=== PATIENT | female | born 1970 | race Caucasian/White ===

== ENCOUNTER 2017-08-31 05:30 | Inpatient (IN) | payer OTHER ==
[~2017-08-31] VITALS: Ht 157.5 cm; Wt 76.2 kg
[2017-08-31] VITALS (10 sets, daily range): BP systolic 115–127; BP diastolic 60–79
[2017-08-31] MEDS ORDERED: PROPOFOL 200 MG/20 ML VIAL IV ONE (07:25)
[2017-08-31] MEDS ORDERED: SEVOFLURANE 250 ML BTL INH ONE (07:25)
[2017-08-31] MEDS ORDERED: ONDANSETRON 4 MG/2 ML VIAL ONE (07:25)
[2017-08-31] MEDS ORDERED: KETOROLAC 60 MG/2 ML VIAL IM ONE (07:25)
[2017-08-31] MEDS ORDERED: DEXAMETHASONE 4 MG/ML VIAL ONE (07:25)
[2017-08-31] MEDS ORDERED: ceFAZolin 1,000 MG VIAL ONE (07:30)
[2017-08-31] MEDS ORDERED: MIDAZOLAM 2 MG/2 ML VIAL ONE (07:34)
[2017-08-31] MEDS ORDERED: fentaNYL 0.05 MG/ML VIAL ONE (07:34)
[2017-08-31] MEDS ORDERED: MORPHINE SULFATE 4 MG/ML SYR ONE ×3 (07:34→09:32)
[2017-08-31] MEDS ORDERED: METOCLOPRAMIDE 10 MG/2 ML INJ VIAL IVP PRN (08:15)
[2017-08-31] MEDS ORDERED: MIDAZOLAM 2 MG/2 ML VIAL IV ONE (08:15)
[2017-08-31] MEDS ORDERED: MORPHINE SULFATE 2 MG/ML SYR IVP PRN (08:15)
[2017-08-31] MEDS ORDERED: MORPHINE SULFATE 4 MG/ML SYR IVP PRN (08:15)
[2017-08-31] MEDS: MORPHINE SULFATE 4 MG/ML SYR IVP PRN ×2 (09:14→09:30)
--- NOTE | 2017-08-31 09:20 | NUR ---
PATIENT HAS BEEN SCREENED AND CATEGORIZED LOW NUTRITION RISK. PATIENT WILL BE SEEN WITHIN 7 DAYS OF ADMISSION. 09/06/[address]
--- NOTE | 2017-08-31 10:10 | NUR ---
RECEIVED BEDSIDE REPORT FROM OR NURSE. PATIENT IS AWAKE, ALERT AND ORIENTEDX4. NO SIGNS OF DISTRESS ON ROOM AIR. IV ON L AC 20G SALINE LOCK. IV IS CLEAN DRY AND INTACT. AT BEDSIDE. SHE COMPLAINS OF PAIN BUT WAS ALREADY GIVEN MORPHINE IN THE OR. HR IS 56 AND RR 15. EXPLAINED TO PATIENT THAT MORE PAIN MEDS CAN DEPRESS HER RESP SYSTEM SO WE WILL TRY ALTERNATIVES LIKE K PAD. K PAD ORDERED AND WILL PLACE ON PATIENT. SCANT BLEEDING ON PAD. NO ABN SIGNS. ALL ADMISSION QUESTIONS ANSWERED. BED IN LOW POSITION. CALL LIGHT WITHIN REACH. WILL CONTINUE TO MONITOR THE PATIENT. VITALS AT BEDSIDE. WILL CHECK IT [id number] FOR AN HOUR.
--- NOTE | 2017-08-31 12:29 | NUR ---
PATIENT WANTED TO TURN THE HEAT UP FOR THE K PAD. TURNED IT UP, NO OTHER COMPLAINTS AT THIS TIME. SCANT BLEEDING NOTED AT THIS TIME. VITALS ARE WITHIN NORMAL LIMITS. WILL CONTINUE TO MONITOR THE PATIENT.
--- NOTE | 2017-08-31 14:30 | NUR ---
PATIENT IS SLEEPING. NO SIGNS OF DISTRESS AT THIS TIME. WILL CONTINUE TO MONITOR THE PATIENT.
--- NOTE | 2017-08-31 15:46 | NUR ---
ASSISTED THE PATIENT TO THE RESTROOM. SHE ATTEMPTED TO URINATE BUT NO URINE. PATIENT BACK IN BED. TOLD HER NEXT TIME SHE WANTS TO GO TO CALL ME AGAIN USING THE CALL LIGHT. SHE VERBALIZED UNDERSTANDING. PATIENTS GAIT IS STEADY. Addendum: 08/31/17 at 1547 by Adeline Nelson RN SCANT BLEEDING NOTED.
--- NOTE | 2017-08-31 19:00 | NUR ---
GAVE BEDSIDE REPORT TO COMPUTATIONAL THEORY SCIENTIST NURSE. PATIENT IS IN STABLE CONDITION.
[2017-08-31] MEDS: MORPHINE SULFATE 2 MG/ML SYR IVP PRN (19:41)
--- NOTE | 2017-08-31 19:41 | NUR ---
PT SAID THAT SHE WAS FEELING BETTER AND PAIN LEVEL WAS DOWN TO A 3 AT THIS TIME. SHE ALSO SAID THAT SHE WAS FEELING LESS NAUSEA THAN BEFORE. PT SAID THAT SHE HAD BEEN FEELING THE URGE TO VOID AND WAS ONLY ABLE TO VOID A SMALL AMOUNT, PT ABDOMEN FELT AND ABDOMEN WAS SOFT AND NON TENDER. WILL CONTINUE TO MONITOR PT FOR NUSEA, PAIN AND VOIDING PATTERN.
--- NOTE | 2017-08-31 19:41 | NUR ---
ADMINISTERED PAIN MEDS FOR MUSIC ORCHESTRATOR NURSE. PATIENT TOLERATED WELL. ENDORSED THE PAIN REASSESSMENT TO
--- NOTE | 2017-08-31 19:41 | NUR ---
RECEIVED REPORT FROM BELL RN DAY SHIFT NURSE. PT IS AOX4 LYING IN LOW BED WITH CALL CHEN IN REACH. PT COMPLAINS OF 8/10 PAIN IN LOWER ABDOMEN. PT IS CRYING AND FACIAL GRIMACING AT THIS TIME. SKIN INTACT AND DVT PUMPS ON LOWER EXTREMITIES. VSS AND PT WAS GIVEN PRN MORPHINE 2MG BY DAY SHIFT NURSE BEFORE ENDORSEMENT OF CHANGE OF SHIFT. PT SAID THAT SHE STILL FELT NAUSEA BUT NO VOMITING. DURING BEDSIDE REPORT STAFF NURSES EXPLAINED THAT IT MAY BE THE EFFECTS OF THE ANESTHESIA AND I WILL MONITOR HER DURING THE SHIFT. PT VERBALIZED UNDERSTANDING.
--- NOTE | 2017-08-31 21:00 | NUR ---
PT SAID THAT SHE HAS NO PAIN AND WAS NOT FEELING NAUSEA ANY LONGER. PT SAID THAT SHE HAD ANOTHER SMALL VOID BUT THAT IT WAS MORE URINE THAN BEFORE. PT SAID THAT MOVING AROUND WHEN SHE FEELS THE URGE TO VOID HAS HELPED HER TO VOID A LITTLE BIT MORE. PT REMINDED TO CALL FOR HELP TO TOILET IF SHE FEELS DIZZY OR WEAK AND TO TAKE HER TIME TRANSFERRING HERSELF FROM SITTING POSITION TO STANDING POSITION. PT VERBALIZED UNDERSTANDING.
--- NOTE | 2017-08-31 22:30 | NUR ---
PT SAID THAT SHE VOIDED A LITTLE MORE BUT WAS STILL HAVING TROUBLE EMPTYING BLADDER. DR. GROVE WAS PAGED FOR AN ORDER TO STRAIGHT CATHETERIZE PT. PT EDUCATED THAT SHE MAY NEED TO BE STRAIGHT CATHETERIZED IF SHE CANNOT EMPTY HER BLADDER. PT VERBALIZED UNDERSTANDING. AWAITING RETURN PHONE CALL FROM PRIMARY DOCTOR.
--- NOTE | 2017-08-31 23:00 | NUR ---
PT SAID THAT SHE HAS NO PAIN AND NAUSEA ANY LONGER BUT STILL FEELS THAT SHE HAS BEEN ABLE TO FULLY EMPTY BLADDER. PT BLADDER WAS SCANNED AND RESULTS WERE 334MLS OF URINE IN THE BLADDER. AWAITING RETURN PHONE CALL FROM PRIMARY, AND WILL CONTINUE TO MONITOR PT. STAFF NURSE DID EXPLAIN THAT HER RETENTION MAY BE THE AFTER EFFECTS OF THE ANESTHESIA. PT VERBALIZED UNDERSTANDING AND WILL CONTINUE TO MONITOR RESIDENT. PT CONTINUES TO HAVE SCANT BLEEDING FROM VAGINA DUE TO SURGERY.
[2017-09-01] VITALS: BP 142/76
--- NOTE | 2017-09-01 00:20 | NUR ---
DR GROVE WAS PAGED AGAIN AWAITING CALL BACK REGARDING ORDERS FOR A STRAIGHT CATHETER PRN.
--- NOTE | 2017-09-01 01:15 | NUR ---
DR CALLED BACK WITH PRN ORDERES FOR STRAIGHT CATHETER AND PRN MOTRIN Q4HRS AND NORCO PRN Q 4HRS REQUESTED BY PT. ATTEMPTED STRAIGHT CATHETER X 2 WITH NO OUTPUT. NO BLOODY DISCHARGE NOTED. PT LABIA PINK, PT TOLERATED PROCEDURE, HOWEVER NOO URINE OUTPUT NOTED. PT DID HAVE AN INCONTIENT EPISODE WITH A SMALL AMOUNT OF URINE APPROXIMATELY 150MLS. BLADDER SCAN WAS REDONE AND VOLUME 104. HAT PUT IN TOILET TO MEASURE PT OUTPUT ACCURATELY. PT GIVEN PRN MOTRIN FOR 5/10 PAIN. PT LINEN CHANGED AND MADE COMFORTABLE. WILL CONTINUE TO MONITOR PT FOR URINE OUTPUT.
[2017-09-01] MEDS ORDERED: ACETAMINOPHEN 325 MG TAB PO PRN (01:25)
[2017-09-01] MEDS: IBUPROFEN 800 MG TAB PO PRN ×3 (01:40→21:21)
[2017-09-01] MEDS: MORPHINE SULFATE 2 MG/ML SYR IVP PRN (04:03)
--- NOTE | 2017-09-01 06:45 | NUR ---
PT HAD X2 EPISODES OF STRESS INCONTINENCE
--- NOTE | 2017-09-01 06:50 | NUR ---
PT HAD SOAKED 3 BED PADS. SHE SAID SHE TRIED TO HOLD IT IN THE FIRST TIME AND THEN SHE SAID THAT SHE HAD BECOME INCONTINENT. PT ALSO C/O OF 6/10 PAIN IN LOWER ABDOMEN. PT SAID THAT SHE WAS CONCERNED BECAUSE SHE HAD NOT HAD BM IN 2 DAYS.
[2017-09-01] MEDS: HYDROcodone/APAP 5/325 MG 1 TAB TAB PO PRN (07:03)
--- NOTE | 2017-09-01 07:43 | NUR ---
DR GROVE AT BEDSIDE TO MICHAEL PT, AND CHANGE OF SHIFT REPORT GIVEN TO JEREMIAH AT BEDSIDE
--- NOTE | 2017-09-01 07:50 | NUR ---
RECEIVED REPORT FROM DATA WAREHOUSE ARCHITECT NURSE, OLE, ABOUT THE PT. PT IS AWAKE AND LYING ON THE BED WITH A PERIPHERAL LINE AT LEFT AC G. 22 SALINE LOCK, INTACT. SIDE RAILS ARE UP AND CALL LIGHT WITHIN REACH. ABDOMINAL BINDER PLACED. DR. GROVE IS ON THE BEDSIDE TALKING TO THE PT. NO SIGN OF DISTRESS NOTED. WILL MONITOR.
--- NOTE | 2017-09-01 07:50 | NUR ---
RECEIVED REPORT FROM PRINT COLOR MATCHER NURSE, OLE, ABOUT THE PT. PT IS AWAKE AND LYING ON THE BED WITH A PERIPHERAL LINE AT LEFT AC G. 22 SALINE LOCK, INTACT. SIDE RAILS ARE UP AND CALL LIGHT WITHIN REACH. ABDOMINAL BINDER PLACED. DR. GROVE IS ON THE BEDSIDE TALKING TO THE PT. NO SIGN OF DISTRESS NOTED. WILL MONITOR.
--- NOTE | 2017-09-01 07:55 | NUR ---
DR. GROVE MADE A VERBAL ORDER TO GIVE PT A STOOL SOFTENER, 100MG.
--- NOTE | 2017-09-01 08:15 | NUR ---
PT IS AWAKE AND LYING ON THE BED, VITAL SIGNS TAKEN AND IS STABLE, ABDOMINAL BINDER WAS PLACED AND NO SIGN OF DISTRESS NOTED. CALL LIGHT WITHIN REACH AND WILL CONTINUE TO MONITOR.
[2017-09-01] MEDS: DOCUSATE SODIUM 100 MG GELCAP PO PRN (09:10)
--- NOTE | 2017-09-01 11:39 | NUR ---
PT IS AWAKE AND LYING ON THE BED, PT VERBALIZED A PAIN RATE OF 6/10, PAIN MEDICATION GIVEN AND PT TOLERATED IT. NO OTHER SIGN OF DISCOMFORT NOTED. CALL LIGHT WITHIN REACH AND WILL CONTINUE TO MONITOR.
--- NOTE | 2017-09-01 13:00 | NUR ---
PT IS AWAKE AND UP AND STANDING, TRYING TO AMBULATE INSIDE THE ROOM. PT VERBALIZED A REDUCED PAIN OF 2/10. NO SIGN OF DISTRESS NOTED AND CALL LIGHT WITHIN REACH. WILL CONTINUE TO MONITOR.
--- NOTE | 2017-09-01 16:30 | NUR ---
PT IS AWAKE AND STANDING ON THE BEDSIDE, ASSISTED PT CLEAN UP AND HANDED A TOOTHBRUSH AND TOOTHPASTE. NO SIGN OF DISTRESS NOTED AND CALL LIGHT WITHIN REACH. WILL CONTINUE TO MONITOR.
--- NOTE | 2017-09-01 19:30 | NUR ---
ENDORSED PT TO VALUE STREAM LEADER NURSEOLE FOR CONTINUITY OF CARE. PT IS AWAKE AND STABLE AT THIS TIME.
--- NOTE | 2017-09-01 19:30 | NUR ---
REPORT RECIEVED FROM SALOME CASTELAN DAY SHIFT NURSE. PT AOX 4 IN LOW BED WITH SIDE RAILS UP X2 AND CALL CHEN IN REACH. PT SKIN INTACT, AND SHE HAS NO C/O VOICED AT THIS TIME. PT REFUSES TO WEAR DVT PUMPS, HOWEVER SHE IS AMBULATORY IN HER ROOM INDEPENDENTLY. SHE IS NOW WEARING AN ABD BINDER TO HELP SUPPORT ABDOMEN. PT IS CALM AND SAID THAT SHE WAS LOOKING FORWARD TO GOING HOME TOMMORROW AND THAT SHE IS FEELING BETTER. PT REPORT THAT SHE IS STILL HAVING INCONTIENT EPISODES WHEN SHE SITS ON TOILET, BUT IS ABLE TO VOID FREELY ON PADS ON BED. HAT LEFT IN TOILET TO MEASURE OUTPUT WHEN TRYING TO VOID ON TOILET. THERE IS ONLY A SCANT AMOUNT OF URINE IN HAT AT HIS TIME. PT DENIED ANY VAGINAL DISCHARGE, ABD PAIN AND N/V/D.
--- NOTE | 2017-09-01 20:00 | NUR ---
PT V/S FOLLOWS T 99.6 P 67 R 20 B/P 131/73 02 IS 97 % R/A
--- NOTE | 2017-09-01 21:21 | NUR ---
PT VITAL SIGNS TAKEN AND TEMP WAS SLIGHTLY ELEVATED AT 99.6 TAKEN ORALLY. PT WAS GIVEN A 800MG MOTRIN FOR MODERATE ABD PAIN 5/10 AND A SLIGHTLY ELEVATED TEMPERATURE. PT APPEARED ANXIOUS DUE TO INCREASED TEMP. COOLING MEASURES PROVIDED FOR WITH ICE PACKS UPON REQUEST AND PT ALSO GIVEN PRUNE JUICE TO HELP HER MOVE HER BOWELS.
--- NOTE | 2017-09-01 23:25 | NUR ---
PT TEMPERATURE WAS RETAKEN AND IS NOW 99.2. PT APPEARS ANXIOUS THAT HER ELEVATED TEMP MAY PUT OF HER DISCHARGE AND SHE IS REQUESTING ABT. PRIMARY NURSE EXPLAINED THAT IT IS UP TO THE PRIMARY DOCTOR TO ORDER AN ABT. MESSAGE LEFT FOR DR GROVE TO CALL BACK UNIT REGARDING PT CONDITION AND CONCERNS. PT IS UP STETECHING AND WALKING AROUND THE ROOM. SHE STATED THAT MOVING AROUND THE ROOM IS HELPING HER CONDITION. WILL CONTINUE TO MONITOR TEMPERATURE AND PT OUTPUT.
[2017-09-02] MEDS: HYDROcodone/APAP 5/325 MG 1 TAB TAB PO PRN (00:48)
--- NOTE | 2017-09-02 03:39 | NUR ---
PT VOMITED X1
--- NOTE | 2017-09-02 07:30 | NUR ---
CHANGE OF SHIFT REPORT GIVEN TO SALOME OWENS NURSE PT IN STABLE CONDITION,
--- NOTE | 2017-09-02 07:35 | NUR ---
RECEIVED PT FROM CUSTOMER RELATIONS ADVISOR NURSE, OLE, PT IS AWAKE AND UP AND STANDING ON THE BED, WITH A LEFT AC G.22 SAL[address] IN [address]. CARE PLAN WAS DISCUSSED AND PT VERBALIZED UNDERSTANDING. NO SIGN OF DISTRESS NOTED AND WILL CONTINUE TO MONITOR.
--- NOTE | 2017-09-02 07:55 | NUR ---
PT IS AWAKE AND LYING ON THE BED, VITAL SIGNS TAKEN AND IS STABLE, PT VERBALIZED A PAIN RATE OF 2/10 BUT IS FEELING NAUSEOUS, NO OTHER SIGN OF DISCOMFORT NOTED AND WILL CONTINUE TO MONITOR.
--- NOTE | 2017-09-02 08:20 | NUR ---
ASKED THE CHURN OPERATOR MARGARINE, CELIA TO PAGED DR. GROVE FOR THE PT, PT IS FEELING NAUSEAOUS AND NO PRN MEDICATION NOTED ON THE PT'S MEDICATION PROFILE. WILL CONTINUE TO MONITOR THE PT.
[2017-09-02] MEDS: DOCUSATE SODIUM 100 MG GELCAP PO PRN (09:28)
--- NOTE | 2017-09-02 09:30 | NUR ---
PT VERBALIZED A PAIN RATE OF 8/10,WILL MEDICATE. NO OTHER SIGN OF DISCOMFORT NOTED. CALL LIGHT WITHIN REACH AND WILL CONTINUE TO MONITOR.
[2017-09-02] MEDS: MORPHINE SULFATE 2 MG/ML SYR IVP PRN (09:35)
--- NOTE | 2017-09-02 09:35 | NUR ---
PT IS AWAKE AND FEELS UNCOMFORTABLE WITH THE PAIN, PAIN MEDICATION GIVEN THROUGH IV PUSH AND PT TOLERATED IT WELL. NO SIGN OF DISTRESS NOTED AND WILL CONTINUE TO MONITOR.
--- NOTE | 2017-09-02 09:40 | NUR ---
PT VERBALIZED THAT SHE IS HAVING A LITTLE SHORTNESS OF BREATH AND ASKED IF SHE CAN BE GIVEN OXYGEN. PT WAS PLACED ON 2L O2 VIA NC. PT TOLERATED IT WELL AND NO OTHER SIGN OF DISTRESS NOTED. WILL CONTINUE TO MONITOR.
--- NOTE | 2017-09-02 11:09 | NUR ---
CALLED AND SPOKE TO DR. GROVE REGARDING THE PT'S DESIRE TO GO HOME TODAY. DR. GROVE SAID THAT THE PT WILL BE GOING HOME TODAY WHEN HE SEES HER. MESSAGE WAS RELAYED TO THE PT AND PT VERBALIZED UNDERSTANDING AND WILL WAIT FOR DR. GROVE TO MAKE HIS ROUNDS.
--- NOTE | 2017-09-02 11:20 | NUR ---
DR. GROVE CAME TO THE STATION AND SAW THE PT. DR. GROVE ORDERED A FLEET ENEMA FOR THE PT.
--- NOTE | 2017-09-02 11:27 | NUR ---
ACKNOWLEDGED A FLEET ENEMA AND DISCHARGE ORDER FOR THE PT FROM DR. GROVE.
[2017-09-02] MEDS ORDERED: SODIUM PHOSPHATE 118 ML ENEM RC SCH (11:29)
--- NOTE | 2017-09-02 12:11 | NUR ---
POSITIONED PT ON LEFT SIDE- LYING WITH THE RIGHT KNEE BENT, ADMINISTERED FLEET ENEMA. PT TOLERATED IT AND NO SIGN OF DISTRESS NOTED. CALL LIGHT WITHIN REACH AND WILL CONTINUE TO MONITOR.
--- NOTE | 2017-09-02 13:44 | NUR ---
FAXED CONCURRENT REVIEW TO [facility] [phone] PHONE CHADD [phone]
--- NOTE | 2017-09-02 14:02 | NUR ---
DISCHARGED PT WITH THE DAUGHTERS VIA WHEELCHAIR, DISCHARGE INSTRUCTIONS GIVEN, ARM BANDS AND IV LINE REMOVED. PT IS STABLE AT THIS TIME.
== END 2017-09-02 14:02 | disposition home or self-care (01) | DRG 513 ==
LOC: MMU 05:30 → UNDOADMIN 05:30 → MMU 05:54 → MTU 08:15 → MMU 18:59 → MTU 18:59
PROVIDERS: ADMIT Obstetrics & Gynecology; ATTEND Obstetrics & Gynecology
PROC: 0JQC0ZZ Repair Pelvic Region Subcutaneous Tissue and Fascia, Open Approach (ICD-10-PCS; 2017-08-31)
PROC: 0UT97ZZ Resection of Uterus, Via Natural or Artificial Opening (ICD-10-PCS; principal; 2017-08-31 07:30)
PROC: 0JQC0ZZ Repair Pelvic Region Subcutaneous Tissue and Fascia, Open Approach (ICD-10-PCS; 2017-08-31 07:30)
DX: N81.4 Uterovaginal prolapse, unspecified (principal)
CPT/HCPCS: 36415; 86886; 86900; 86901; 87081; 88307; 93005; C1758; J0690; J1100; J1885; J2250; J2270; J2405; J2704; J3010; J7030; J7060; J7120